=== PATIENT | female | born 1995 | race Hispanic/Latino ===

== ENCOUNTER 2022-09-08 13:08 | Emergency (ER) | payer MEDICAID, SELFPAY ==
[2022-09-08] MEDS ORDERED: Lidocaine 1% w/Epinephrine 1:200K 30 ML VIAL ONE (16:23)
[2022-09-08] MEDS ORDERED: Boostrix 0.5 ML (Tdap) VIAL (>/=7 yrs of age) ONE (16:52)
== END 2022-09-08 16:53 | disposition home or self-care (01) ==
LOC: CSHERS 13:08
DX: L03.116 Cellulitis of left lower limb (principal)
CPT/HCPCS: 10060; 90471; 90715

== ENCOUNTER 2022-12-11 15:21 | Emergency (ER) | payer SELFPAY ==
[2022-12-11] MEDS ORDERED: Ondansetron ODT 4 MG TAB ONE (16:36)
[2022-12-11] MEDS ORDERED: Ketorolac Tromethamine 30 MG/ML VIAL ONE (16:36)
== END 2022-12-11 21:56 | disposition home or self-care (01) ==
LOC: CSHERS 15:21
DX: L02.211 Cutaneous abscess of abdominal wall (principal)
CPT/HCPCS: 96372; 99282; J1885; Q0162

== ENCOUNTER 2023-09-15 07:00 | Emergency (ER) | payer SELFPAY | END 2023-09-15 08:23 | disposition home or self-care (01) | LOC: CSHERS 07:00 | DX: O03.9 Complete or unspecified spontaneous abortion without complication (principal); Z3A.00 Weeks of gestation of pregnancy not specified | CPT/HCPCS: 84702; 99284 ==